=== PATIENT | female | born 1950 | race Two or more races ===

== ENCOUNTER 2018-03-25 07:22 | Outpatient (CLI) | payer OTHER ==
[~2018-03-25 07:22] MED LIST: ADULT LOW DOSE81 M1; CLONAZEPAM1 GM; COREG CR10 MG; LIPITOR20 MG; OMEPRAZOLE; RESTORIL30 MG; VASOTEC2.5 MG; ZOLOFT100 MG
== END 2018-03-25 07:31 | disposition home or self-care (01) ==
LOC: LAB 07:22
DX: D68.8 Other specified coagulation defects (principal); D64.89 Other specified anemias

== ENCOUNTER → 2020-07-13 | Emergency (ER) | payer OTHER ==
[~2020-07-13] VITALS: Ht 154.9 cm; Wt 54.4 kg
[~2020-07-13] MED LIST changes: +BUSPIRONE HCL7.5 MG; +MEMANTINE HCL10 MG; +SERTRALINE20 MG/1 ML; +VALPROIC A500 MG/10
== END | disposition left against medical advice (07) ==
LOC: ER 11:00
DX: Z53.20 Procedure and treatment not carried out because of patient's decision for unspecified reasons (principal)